=== PATIENT | male | born 1985 | race Hispanic/Latino ===

== ENCOUNTER 2017-07-25 21:09 | Emergency (ER) | payer OTHER ==
[2017-07-25 21:39] VITALS: BP 136/83; PULSE 66; RESP 18; TEMP 97.9; O2SAT 99
--- NOTE | 2017-07-25 22:22 | ED PDOC ---
Lower Extremity Pain/Injury Time Seen by Provider: 07/25/17 21:48 Chief Complaint (Nursing): Lower Extremity Problem/Injury Chief Complaint (Provider): Left foot pain History Per: Patient History/Exam Limitations: no limitations Onset/Duration Of Symptoms: Days (07/25/17) Current Symptoms Are (Timing): Still Present Additional Complaint(s): 32 year old male presents to the ED complaining of left foot pain. States he was playing soccer earlier and another player stepped on his left foot. Reports of pain and notes of seeing great toe "come out of place". Denies numbness or tingling. PMD: No Family Provider Past Medical History Reviewed: Historical Data, Nursing Documentation, Vital Signs Vital Signs: Last Vital Signs Temp 97.9 F 07/25/17 21:37 Pulse 66 07/25/17 21:37 Resp 18 07/25/17 21:37 BP 136/83 07/25/17 21:37 Pulse Ox 99 07/25/17 21:37 - Medical History PMH: No Chronic Diseases - Family History Family History: States: Unknown Family Hx - Allergies Allergies/Adverse Reactions: Allergies Allergy/AdvReac Type Severity Reaction Status Date / Time No Known Allergies Allergy Verified 07/25/17 21:37 Review of Systems ROS Statement: Except As Marked, All Systems Reviewed And Found Negative Musculoskeletal: Positive for: Foot Pain (left). Negative for: Other (tingling) Neurological: Negative for: Numbness Physical Exam - Reviewed Nursing Documentation Reviewed: Yes Vital Signs Reviewed: Yes - Physical Exam Appears: Positive for: Well, Non-toxic, No Acute Distress Head Exam: Positive for: ATRAUMATIC, NORMAL INSPECTION, NORMOCEPHALIC Skin: Positive for: Normal Color, Warm, Dry Pulses-Dorsalis Pedis (L): 2+ Extremity: Positive for: Tenderness (mild ), Capillary Refill (less than 2 seconds), Swelling (1st MTP joint on the left foot) Neurologic/Psych: Positive for: Alert, Oriented (x3). Negative for: Motor/ Sensory Deficits - ECG O2 Sat by Pulse Oximetry: 99 (RA) Pulse Ox Interpretation: Normal Medical Decision Making Medical Decision Making: Time: 2155 Initial Plan: --Foot Left 3 Views --Reevaluation --Toes tadeo taped by JORGE. --Advised to f/u with fermentation scientist for further evaluation. Scribe Attestation: Documented by Arsen Resendez, acting as a scribe for Juan A Hernandez PA-C Provider Scribe Attestation: All medical record entries made by the Scribe were at my direction and personally dictated by me. I have reviewed the chart and agree that the record accurately reflects my personal performance of the history, physical exam, medical decision making, and the department course for this patient. I have also personally directed, reviewed, and agree with the discharge instructions and disposition. Disposition - Clinical Impression Clinical Impression: Toe sprain - Patient ED Disposition Is Patient to be Admitted: No - Disposition Referrals: Yolanda Beckford DPM [Staff Provider] - Disposition: Routine/Home Disposition Time: 23:43 Condition: STABLE Additional Instructions: Follow up with Dr. Beckford for further evaluation. Return to ED immediately if symptoms worsen. Instructions: Toe Injury (DC) Forms: [employer] (Panamanian) Print Language: THAI
--- NOTE | 2017-07-25 22:48 | RAD ---
EXAM: XR Left Foot Complete, 3 or More Views CLINICAL HISTORY: 32 years old, male; Injury or trauma; Injury Hurt left toe play soccer; Initial encounter; Blunt trauma; Toes TECHNIQUE: Frontal, lateral and oblique views of the left foot. COMPARISON: No relevant prior studies available. FINDINGS: Bones/joints: No acute fracture. No dislocation. Soft tissues: Unremarkable. IMPRESSION: 1. No fracture. 2. If pain persists, suggest splinting and follow up radiographs in 7-10 days.
[2017-07-25] MEDS ORDERED: PROPARACAINE/FLUORESCEIN SOD 100 DROP/5 ML BOTTLE ONE (23:35)
== END 2017-07-25 23:43 | disposition home or self-care (01) ==
LOC: H.ER 21:09
DX: S93.502A Unspecified sprain of left great toe, initial encounter (principal); W50.0XXA Accidental hit or strike by another person, initial encounter; Y93.66 Activity, soccer